=== PATIENT | male | born 1950 | race Caucasian/White ===

== ENCOUNTER → 2025-05-23 | Outpatient (CLI) | payer OTHER, SELFPAY ==
--- NOTE | 2025-05-23 09:30 | US_ITS ---
PROCEDURE: ABD LIMITED W/ ELASTOGRAPHY REASON FOR EXAM: ELEVATED LEVELS LIVER TRANSAMINASE COMPARISON: None. TECHNIQUE: Right upper quadrant abdominal ultrasound. Jack ElastQ Imaging shear wave elastography for non-invasive assessment of liver tissue stiffness. Jack EPIQ Elite. FINDINGS: LIVER: Size: Unremarkable Length: 15.9 cm Echotexture: Diffusely echogenic suggesting fatty infiltration Contour: Normal Lesions: Septated cyst in the right lobe of the liver measuring 7 mm x 7 mm x 7 mm. Elastography: EQI Med: 7.8 kPa EQI Med Juan: 1.6 m/s IQR/Med: 23 %* GALLBLADDER: No stones sludge wall thickening or tenderness. COMMON BILE DUCT: Normal measuring 3.8 mm . PANCREAS: Normal Visualized portions of the right kidney are unremarkable. No right upper quadrant ascites. US/ABD Limited w/ Elastography IMPRESSION: Moderate hepatic fibrosis. Small septated cyst in the right lobe of the liver. Reference Values: SRU <1.37 m/s (5.7kPa): No to mild fibrosis 1.37 m/s - 2.2 m/s: Moderate to severe fibrosis >2.2 m/s (15kPa): Significant fibrosis / cirrhosis METAVIR Score F2 or higher: 1.34 m/s (5.7kPa) F3 or higher: 1.55 m/s (7.3kPa) F4: 1.80 m/s (10kPa) * If the IQR/Med is >30%, the variance in the measurements is a large and the a ccuracy of the measurement may be in question. Reading Location: [facility]
== END | disposition home or self-care (01) ==
LOC: US 09:26
PROVIDERS: PCP Family Medicine; Referring Provider Internal Medicine; Visit Provider Internal Medicine
DX: R74.01 Elevation of levels of liver transaminase levels (principal)
CPT/HCPCS: 76705; 76981

== ENCOUNTER → 2025-09-18 | Outpatient (CLI) | payer MEDICARE, SELFPAY ==
[2025-09-19 14:09] LABS: PSA, Free 0.54 ng/mL; PSA, Free % 15.7 % (.); PSA, Total Ultrasensitive 3.440 ng/mL (0.000-4.000)
== END | disposition home or self-care (01) ==
PROVIDERS: PCP Nurse Practitioner Family; Referring Provider Urology; Visit Provider Urology
DX: N40.1 Benign prostatic hyperplasia with lower urinary tract symptoms (principal)
CPT/HCPCS: 36415; 84153; 84154